=== PATIENT | female | born 2000 | race Caucasian/White ===

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

== ENCOUNTER 2022-04-06 10:47 | Emergency (ER) | payer OTHER, SELFPAY ==
[2022-04-06 10:57] VITALS: BP 141/84; PULSE 75; RESP 16; TEMP 36.6; O2SAT 96; BMI 37.1
[2022-04-06 11:06] LABS: UTC Strep Screen (Rapid) Positive (Negative)
--- NOTE | 2022-04-06 11:08 | EXP.UTC ---
Discharge Plan Disposition Patient Disposition: Home, Self-Care Condition: Good Prescriptions Prescriptions: New sqxckycwrrwcnny-ltfnhqqrn-SG [Bromfed DM] 2-30-10 mg/5 mL Syrup 5 ml PO Q6H PRN (Reason: Cough) Qty: 240 0RF cefdinir 250 mg/5 mL suspension for reconstitution 300 mg PO BID 10 Days Qty: 120 0RF No Action azithromycin 250 MG tablet 250 mg PO UD DOSE PK Qty: 6 0RF Rx Instructions: Take two (2) tablets today, then one (1) tablet days #2 thru #5 methylprednisolone 4 MG tablets,dose pack 4 mg PO DIRECTED 6 Days Qty: 21 0RF zqiheinayhhmwhx-ltkuvzbxn-OP 118 ML syrup 5 ml PO Q6HP PRN (Reason: Cough) Qty: 240 0RF pseudoephedrine HCl 120 MG tablet extended release 1 tab PO BID 10 Days Qty: 20 0RF cefdinir 300 MG capsule 300 mg PO BID Qty: 20 0RF fluticasone propionate 9.9 ML spray,suspension 1 spray NS BID 10 Days Qty: 1 0RF Referrals Follow up/Referrals: Seth Pereira MD [Primary Care Provider] - See instructions Activity Restrictions/Add. Instructions Additional Instructions/Restrictions: Drink plenty of fluids. Take tylenol or ibuprofen for pain or fever. Take the medications as directed. Follow up with your regular doctor. GO TO THE ER FOR ANY WORSENING SYMPTOMS Throw your tooth brush away and get a new one. Clinical Impressions Clinical Impression: Strep throat Instructions Patient Instructions: Strep Throat, DI for Strep Throat Discharge ED Provider: Michael Naik [facility] [place] H[place] General Stated complaint: sore throat, soa Mode of Arrival: Ambulatory Source of Information: Patient Limitations: No Limitations Time Seen by Provider: 04/06/22 11:08 Description of Symptoms (Recalled from Triage Doc. by RN): pt comes in with c/o swollen tonsils, symptoms began last night. HEENT Symptoms (Recalled from RN notes): Yes Resp Symptoms (Recalled from RN notes): No Skin Symptoms (Recalled from RN notes): No MS Symptoms (Recalled from RN notes): No Functional Status (Recalled from RN notes): n/a History of Present Illness Provider Complaint: She states that for the past 2 days she has had a weird feeling in her throat. She denies any fever, chills or body aches. Related Data Previous Rx's Medication Instructions Recorded azithromycin 250 mg tablet 250 mg PO UD DOSE PK #6 tabs 10/01/21 htooymkxtajyvgg-xjcwyhpdtjqhosk-HH 5 ml PO Q6HP PRN Cough #240 mL 10/01/21 2 mg-30 mg-10 mg/5 mL oral syrup methylprednisolone 4 mg tablets in 4 mg PO DIRECTED 6 days #21 10/01/21 a dose pack packets cefdinir 300 mg capsule 300 mg PO BID #20 caps 12/01/21 fluticasone propionate 50 1 spray intranasal BID 10 days #1 12/01/21 mcg/actuation nasal mL spray,suspension pseudoephedrine HCl 120 mg 1 tab PO BID 10 days #20 tabs 12/01/21 tablet,extended release vxzbpevsddrmzzt-jcsglturahyceid-SF 5 ml PO Q6H PRN Cough #240 mL 04/06/22 2 mg-30 mg-10 mg/5 mL oral syrup (Bromfed DM) cefdinir 250 mg/5 mL oral 300 mg (6 mL) PO BID 10 days #120 04/06/22 suspension mL Allergies Allergy/AdvReac Type Severity Reaction Status Date / Time Penicillins [PENICILLINS] Allergy Unknown Verified 04/06/22 11:00 Worker's Comp Is this a Worker's Comp case?: No PFSH PFSH Social History Smoking Status: Never smoker alcohol intake: never substance use type: denies use current occupational status: student Travel in the last 8 weeks: None household members: family housing: house ROS Obtained: Yes All systems reviewed & no additional complaints except as documented Constitutional Constitutional: Reports chills and Reports fever(s) Eyes Eyes: Denies eye discharge ENT Ears, Nose, Mouth, and Throat: Reports as per HPI Cardiovascular Cardiovascular: Denies chest pain Respiratory Respiratory: Denies chest congestion and Reports cough Gastrointestinal Gastrointestingal: Reports nausea; Denies abdo
[2022-04-06 11:42] VITALS: BP 141/84; PULSE 75; RESP 16; TEMP 36.6
== END 2022-04-06 11:45 | disposition home or self-care (01) ==
PROVIDERS: Emergency Provider Nurse Practitioner Family; PCP Emergency Medicine
DX: J02.0 Streptococcal pharyngitis (principal); B95.0 Streptococcus, group A, as the cause of diseases classified elsewhere; R05.9 Cough, unspecified; R06.02 Shortness of breath; Z79.51 Long term (current) use of inhaled steroids; Z79.52 Long term (current) use of systemic steroids; Z88.0 Allergy status to penicillin
CPT/HCPCS: 87880; 99213; G0463

== ENCOUNTER 2022-10-13 17:38 | Emergency (ER) | payer SELFPAY ==
[2022-10-13 17:50] VITALS: BP 146/89; PULSE 125; RESP 18; TEMP 36.7; O2SAT 99; BMI 36.9; BMI 37.1
--- NOTE | 2022-10-13 17:59 | EXP.UTC ---
Discharge Plan Disposition Patient Disposition: Home, Self-Care Condition: Good Referrals Follow up/Referrals: Seth Pereira MD [Primary Care Provider] - See instructions Activity Restrictions/Add. Instructions Additional Instructions/Restrictions: Your test results should be back in 5-7 days follow up with your OBGYN or Your Family Doctor for the results If you have any sores or blisters that occur Follow up immediately Return if needed Clinical Impressions Clinical Impression: Exposure to herpes Instructions Patient Instructions: Herpes Simplex Virus Testing, DI for Genital Herpes, DI for Cold Sores Discharge ED Provider: Cortney Sethi [facility] [place] General Stated complaint: Possible herpes Mode of Arrival: Ambulatory Source of Information: Patient Limitations: No Limitations Time Seen by Provider: 10/13/22 17:59 Description of Symptoms (Recalled from Triage Doc. by RN): c/o possible herpes. PT states that the danielle she has been seeing for the last 2 weeks has herpes per his baby momma. States she is concerned due to her having oral sex and kissed, denies any other sexual activity History of Present Illness Provider Complaint: Patient states that she has been seeing a danielle for a couple of weeks and his ex just told her that he has herpes States they did not have any penetration but did perform oral sex on each other States that she doesnt have any blisters on her but wanted to get a blood test to see Related Data Allergies Allergy/AdvReac Type Severity Reaction Status Date / Time Penicillins [PENICILLINS] Allergy Unknown Verified 04/06/22 11:00 [facility] Disclaimer: The information contained in this section may have been updated after the patient was seen, as this information can be updated by other users. Social History Smoking Status: Never smoker alcohol intake: never substance use type: denies use current occupational status: student Travel in the last 8 weeks: None household members: family housing: house ROS Obtained: Yes All systems reviewed & no additional complaints except as documented and Yes Systems reviewed as appropriate & no additional complaints except as documented Constitutional Constitutional: Reports system reviewed and no additional complaints, except as documented and Reports as per HPI ENT Ears, Nose, Mouth, and Throat: Reports system reviewed and no additional complaints, except as documented and Reports as per HPI Cardiovascular Cardiovascular: Reports system reviewed and no additional complaints, except as documented and Reports as per HPI Respiratory Respiratory: Reports system reviewed and no additional complaints, except as documented Gastrointestinal Gastrointestingal: Reports system reviewed and no additional complaints, except as documented and as per HPI Genitourinary Female Genitourinary: Reports system reviewed and no additional complaints, except as documented, Reports as per HPI, Denies genital lesions and Denies vaginal discharge Allergic/Immunologic Comments: had oral sex with someone that she was told has herpes she did not see any open lesions but now wanting to get tested Physical Exam General General appearance: alert and in no apparent distress ENT ENT exam: Present normal exam, normal oropharynx and mucous membranes moist Respiratory Respiratory exam: Present normal lung sounds bilaterally; Absent respiratory distress or wheezes Cardiovascular Cardiovascular exam: Present regular rate, normal rhythm and tachycardia Abdominal Exam Abdominal exam: Present soft and normal bowel sounds; Absent distention or tenderness Neurological Exam Neurological exam: Present alert, oriented X3 and normal gait Medical Decision Making Maximilian Inquiry Pt receiving controlled substance: No Maximilian was queried for this patient: No Vital Signs: 10/13/22 17:50 Pulse Rate [Left Radial] 125 H Respiratory Rate 18 0
[2022-10-13 18:26] VITALS: BP 146/89; PULSE 125; RESP 18; TEMP 36.7; O2SAT 99
[2022-10-15 11:10] LABS: HSV 1 IgG, Type Spec <0.91 index (0.00-0.90); HSV 2 IgG, Type Spec <0.91 index (0.00-0.90)
== END 2022-10-13 18:27 | disposition home or self-care (01) ==
PROVIDERS: Emergency Provider Nurse Practitioner; PCP Emergency Medicine
DX: Z11.3 Encounter for screening for infections with a predominantly sexual mode of transmission (principal); Z20.2 Contact with and (suspected) exposure to infections with a predominantly sexual mode of transmission
CPT/HCPCS: 86695; 86790; 99212; 99213; G0463

== ENCOUNTER 2023-09-17 08:30 | Emergency (ER) | payer OTHER, SELFPAY ==
[2023-09-17 08:40] VITALS: BP 107/71; PULSE 104; RESP 18; TEMP 37.1; O2SAT 96; BMI 39.7
--- NOTE | 2023-09-17 08:50 | EXP.UTC ---
Discharge Plan Disposition Patient Disposition: Home, Self-Care Condition: Good Prescriptions Prescriptions: New azithromycin [Zithromax Z-Armond] 250 mg tablet See Rx Instructions .ROUTE .COMPLEX 5 Days Qty: 6 0RF Rx Instructions: For 250 mg dose pack: take 500 mg today (day 1), then 250 mg for 4 days (days 2-5) Referrals Follow up/Referrals: Luke Montiel MD [Primary Care Provider] - See instructions Activity Restrictions/Add. Instructions Additional Instructions/Restrictions: *Monitor Temp, Over the counter Motrin or Tylenol as directed/as needed Tylenol every 4 hours and Motrin every 6 hours (as long as your family doctor has told you that you can take it) for fever or pain. and straight to ER if unable to lower temp less than 101.0 after medication given *Warm salt water gargles may help to soothe the throat *Throat Lozenges? *Warm fluids like tea with honey may help to soothe the throat? *Sleep elevated *Humidifier/Vaporizer *If you did not take Penicillin shot or was unable to, start taking antibiotic immediately and make sure that you take it for the FULL length of time although you should start to feel better in 24-48 hours *change toothbrush and toothpaste 24-48 hours after starting to take antibiotics so you do not reinfect yourself Monitor Temp. Tylenol and/or Ibuprofen as needed. ER if fever is no less than 101 despite alternating Tylenol and Ibuprofen * Encourage fluids, water, Gatorade, powerade, pedialyte if /toddler/or child *Cold fluids, popsicles and ice cream may feel good on his throat Follow up IMMEDIATELY for new or worsening symptoms or no Noticeable improvement over the next 48-72 hours. 911 for difficulty breathing or swallowing Clinical Impressions Clinical Impression: Strep throat Instructions Patient Instructions: Strep Throat, DI for Strep Throat Discharge ED Provider: Cortney Sethi [facility] [place] General Stated complaint: Sore throat, some congestion Mode of Arrival: Ambulatory Source of Information: Patient Limitations: No Limitations Time Seen by Provider: 09/17/23 08:50 Description of Symptoms (Recalled from Triage Doc. by RN): PATIENT C/O SORE THROAT AND BILATERAL EAR PAIN SINCE FRIDAY HEENT Symptoms (Recalled from RN notes): Yes Resp Symptoms (Recalled from RN notes): No Skin Symptoms (Recalled from RN notes): No MS Symptoms (Recalled from RN notes): No Functional Status (Recalled from RN notes): WNL History of Present Illness Provider Complaint: Patient states that her boyfriends daughter recently had strep throat States since Friday she has been having sore throat and bilateral ear pain that has continued to get worse so today she came in to get it checked Related Data Previous Rx's Medication Instructions Recorded azithromycin 250 mg tablet See Rx Instructions PO .COMPLEX 5 09/17/23 (Zithromax Z-Armond) days #6 tabs Allergies Allergy/AdvReac Type Severity Reaction Status Date / Time Penicillins [PENICILLINS] Allergy Unknown Verified 04/06/22 11:00 Worker's Comp Is this a Worker's Comp case?: No [facility] Disclaimer: The information contained in this section may have been updated after the patient was seen, as this information can be updated by other users. Social History Smoking Status: Never smoker alcohol intake: never substance use type: denies use current occupational status: student Travel in the last 8 weeks: None household members: family housing: house ROS Obtained: Yes All systems reviewed & no additional complaints except as documented and Yes Systems reviewed as appropriate & no additional complaints except as documented Constitutional Constitutional: Reports system reviewed and no additional complaints, except as documented, Reports as per HPI and Reports headache(s) Eyes Eyes: Reports system reviewed and no additional complaints, except as documented and Reports as per HPI ENT Ears, Nose, Mouth, and Throat: Reports system reviewed and no additional complaints, except as documented, Reports as per HPI, Reports otalgia, Reports headache(s) and Reports sore throat Cardiovascular Cardiovascular: Reports system reviewed and no additional complaints, except as documented and Reports as per HPI Respiratory Respiratory: Reports as per HPI Gastrointestinal Gastrointestingal: Reports system reviewed and no additional complaints, except as documented and as per HPI Genitourinary Female Genitourinary: Reports system reviewed and no additional complaints, except as documented and Reports as per HPI Musculoskeletal Musculoskeletal: Reports system reviewed and no additional complaints, except as documented and Reports as per HPI Neurologic Neurologic: Reports headache(s) Physical Exam General General appearance: alert and in no apparent distress ENT ENT exam: Present mucous membranes moist Expanded ENT Exam Throat exam: Present tonsillar erythema and tonsillar exudate Respiratory Respiratory exam: Present normal lung sounds bilaterally; Absent respiratory distress or wheezes Cardiovascular Cardiovascular exam: Present regular rate, normal rhythm and normal heart sounds Abdominal Exam Abdominal exam: Present soft and normal bowel sounds; Absent distention or tenderness Neurological Exam Neurological exam: Present alert, oriented X3 and normal gait Medical Decision Making Maximilian Inquiry Pt receiving controlled substance: No Maximilian was queried for this patient: No Vital Signs: 09/17/23 08:40 Temperature 98.7 F Temperature Source Oral Pulse Rate [Left Brachial] 104 H Respiratory Rate 18 Blood Pressure [Left Arm] 107/71 L Blood Pressure Mean [Left Arm] 83 Blood Pressure Source [Left Arm] Automatic Cuff Blood Pressure Position [Left Arm] Sitting 02 Sat by Pulse Oximetry 96 Oxygen Delivery Method Room Air Lab Data Lab results reviewed: Yes I reviewed the patient's lab results.
[2023-09-17 08:56] VITALS: BP 107/71; PULSE 104; RESP 18; TEMP 37.1; O2SAT 96
[2023-09-17 08:56] LABS: UTC Strep Screen (Rapid) Positive (Negative)
== END 2023-09-17 09:00 | disposition home or self-care (01) ==
PROVIDERS: Emergency Provider Nurse Practitioner; PCP Internal Medicine Adolescent Medicine
DX: J02.0 Streptococcal pharyngitis (principal); H92.03 Otalgia, bilateral
CPT/HCPCS: 87880; 99212; 99214; G0463

== ENCOUNTER 2023-10-01 16:38 | Emergency (ER) | payer OTHER, SELFPAY ==
[2023-10-01 16:40] VITALS: BP 161/105; PULSE 107; RESP 16; TEMP 36.8; O2SAT 98; BMI 38.7
--- NOTE | 2023-10-01 16:44 | ED_ITS ---
<Statement entered by Kriss Leon DO - 10/01/23 22:41> I was consulted by the LELA, and we discussed the complexity of the problems being addressed. I approved the treatment and management plan for this patient's care in the emergency department, thus performing a substantive portion of the medical decision making. Kriss Leon DO Discharge Plan Disposition Patient Disposition: Home, Self-Care Condition: Good Prescriptions Prescriptions: New albuterol sulfate 90 mcg/actuation HFA aerosol inhaler 2 inh inhalation Q4H PRN (Reason: shortness of breath or wheezing) Qty: 8.5 0RF prednisone 50 mg tablet 50 mg PO DAILY 5 Days Qty: 5 0RF No Action azithromycin [Zithromax Z-Armond] 250 mg tablet See Rx Instructions .ROUTE .COMPLEX 5 Days Qty: 6 0RF Rx Instructions: For 250 mg dose pack: take 500 mg today (day 1), then 250 mg for 4 days (days 2-5) Referrals Follow up/Referrals: Agustina Booker MD [Physician] - See instructions Luke Montiel MD [Primary Care Provider] - See instructions Activity Restrictions/Add. Instructions Additional Instructions/Restrictions: Utilize rescue inhaler 2 puffs every 4 hours as needed for shortness of breath or wheezing. Please call in the morning for a appointment with pulmonology. Follow-up with your PCP in 1 week for reevaluation return to ER as needed Clinical Impressions Clinical Impression: Lower respiratory tract infection Stand Alone Forms Stand Alone Forms: Work/School Release Discharge ED Provider: Kriss Leon General Adult HPI <SAUNDRA Sykes - Last Filed: 10/01/23 18:02> General Chief complaint: Upper Respiratory Infection Stated complaint: SOA,exposed to flu Time Seen by Provider: 10/01/23 16:44 History of Present Illness HPI narrative: Patient presents for evaluation of shortness of air and exposure to flu. Patient states that she was exposed to flu on Friday and then Friday began having constitutional symptoms of subjective fever body aches headache and nonproductive cough. Symptoms have persisted through today and patient reports feeling chest tightness when she tries to take a deep breath. Patient denies cardiac chest pain chills hemoptysis hematochezia melena nausea vomiting diarrhea. Related Data Previous Rx's Medication Instructions Recorded azithromycin 250 mg tablet See Rx Instructions PO .COMPLEX 5 09/17/23 (Zithromax Z-Armond) days #6 tabs albuterol sulfate 90 mcg/actuation 2 inh inhalation Q4H PRN shortness 10/01/23 aerosol inhaler of breath or wheezing #8.5 grams prednisone 50 mg tablet 50 mg PO DAILY 5 days #5 tabs 10/01/23 Allergies Allergy/AdvReac Type Severity Reaction Status Date / Time Penicillins [PENICILLINS] Allergy Unknown Verified 04/06/22 11:00 PFS <SAUNDRA Sykes - Last Filed: 10/01/23 18:02> [facility] Disclaimer: The information contained in this section may have been updated after the patient was seen, as this information can be updated by other users. Social History Smoking Status: Current every day smoker alcohol intake: never substance use type: denies use current occupational status: student Travel in the last 8 weeks: None household members: family housing: house <SAUNDRA Sykes - Last Filed: 10/01/23 18:02> ROS Obtained: Yes Systems reviewed as appropriate & no additional complaints except as documented Physical Exam <SAUNDRA Sykes - Last Filed: 10/01/23 18:02> General General appearance: alert and in no apparent distress Head Head exam: atraumatic and normal inspection Eye Eye exam: Present normal appearance, PERRL and EOMI ENT ENT exam: Present normal exam, normal oropharynx and mucous membranes moist Neck Neck exam: Present normal inspection, full ROM and trachea midline; Absent lymphadenopathy Chest Chest inspection: Present normal inspection and symmetric chest wall rise; Absent tenderness Respiratory Respiratory exam: Present normal lung sounds bilaterally; Absent respiratory distress, wheezes (Faint end expiratory wheezes in all 4 mcneil) or accessory muscle use Cardiovascular Cardiovascular exam: Present normal rhythm, tachycardia, normal heart sounds, +S1 and +S2 Abdominal Exam Abdominal exam: Present soft (Obese) and normal bowel sounds; Absent tenderness Extremities Exam Extremities exam: Present normal inspection and full ROM; Absent tenderness Back Exam Back exam: Present normal inspection and full ROM; Absent tenderness Neurological Exam Neurological exam: Present alert and oriented X3 Psychiatric Psychiatric exam: Present normal affect and normal mood Skin Skin exam: Present warm, dry and normal color Medical Decision Making <SAUNDRA Sykes Last Filed: 10/01/23 18:02> Medical Records Medical records reviewed: Yes I reviewed the patient's medical records. Maximilian Inquiry Pt receiving controlled substance: No Vital Signs: 10/01/23 16:40 10/01/23 17:03 10/01/23 18:06 Temperature 98.3 F 98.3 F Temperature Source Oral Pulse Rate 105 H 105 H Pulse Rate [Left Radial] 107 H Respiratory Rate 16 20 20 Blood Pressure 136/76 136/76 Blood Pressure [Right Arm] 161/105 H Blood Pressure Mean [Right Arm] 123 Blood Pressure Source Automatic Cuff Blood Pressure Position Sitting Sitting 02 Sat by Pulse Oximetry 98 94 L Oxygen Delivery Method Room Air Room Air Room Air Lab Data Lab results reviewed: Yes I reviewed the patient's lab results. Lab Results 10/01/23 16:44: SARS-CoV-2 (PCR) Not detected, Influenza A Untype (PCR) Not detected, Influenza Type B (PCR) Not detected 10/01/23 16:54: WBC 5.5, RBC 4.84, Hgb 11.5 L, Hct 36.2 L, MCV 74.7 L, MCH 23.7 L, MCHC 31.6 L, RDW 15.6, Plt Count 310, MPV 10.0, Neut % (Auto) 64.6, Lymph % (Auto) 26.5, [place] % (Auto) 6.5, Eos % (Auto) 1.0, Baso % (Auto) 1.5, Neut # (Auto) 3.5, Lymph # (Auto) 1.5, [place] # (Auto) 0.4, Eos # (Auto) 0.1, Baso # (Auto) 0.1, D-Dimer 0.37, Sodium 138, Potassium 3.5, Chloride 104, Carbon Dioxide 25, Anion Gap 12.5, BUN 13, Creatinine 0.60, Estimated Creat Clear 257, Estimated GFR 127, Est GFR ( Amer) 154, Glucose 90, Calcium 8.9, Magnesium 2.1, Serum HCG, Qual Negative 10/01/23 16:54 10/01/23 16:54 Orders (Tests/Meds): ED MEDICATIONS Discontinued Medications Generic Name Dose Route Start Last Admin Trade Name Freq PRN Reason Stop Dose Admin Acetaminophen 1,000 mg 10/01/23 16:48 10/01/23 17:11 Acetaminophen 500mg Tab PO 10/01/23 16:49 1,000 mg ONCE ONE Administration Albuterol/Ipratropium 3 ml 10/01/23 16:51 10/01/23 17:12 Ipratropium/Albuterol 3 Ml Neb IH 10/01/23 16:52 3 ml ONCE ONE Administration Dexamethasone Sodium Phosphate 10 mg 10/01/23 16:48 10/01/23 17:11 Dexamethasone 4mg/Ml 1ml Vial IV 10/01/23 16:49 10 mg ONCE ONE Administration Ketorolac Tromethamine 15 mg 10/01/23 16:48 10/01/23 17:27 Ketorolac 30mg/Ml Vial IV 10/01/23 16:49 15 mg ONCE ONE Administration ORDERS Category Date Time Status Chest XR -- portable [XR chest portable] Stat Exams 10/01/23 16:48 Completed BMP [Basic Metabolic Panel] Stat Lab 10/01/23 16:54 Completed CBC w/Auto Diff [Complete Blood Count Auto Diff] Stat Lab 10/01/23 16:54 Completed D-Dimer Stat Lab 10/01/23 16:54 Completed HCG Qualitative, Serum Stat Lab 10/01/23 16:54 Completed Magnesium Stat Lab 10/01/23 16:54 Completed Rapid PCR Covid and Flu A/B Stat Lab 10/01/23 16:44 Completed Medical Decision Narrative: In summary patient is a 42-year-old female who presents to the emergency department for evaluation of positive flu chest tightness breath. Patient is tachycardic normotensive upon arrival, and afebrile. Physical exam is remarkable for faint end expiratory wheezes mcneil but no chest tenderness to palpation. Patient is slightly tachycardic rhythm is tachycardia on the bedside monitor.. Differential diagnosis includes asthma exacerbation versus viral or bacterial infection. Initial workup will be conducted with hematologic labs respiratory swabs twelve-lead EKG plain film chest x-ray. Initial interventions include Toradol Tylenol DuoNeb Decadron. Initial workup reviewed by me shows hematologic labs are nonactionable including negative respiratory swabs and normal white count with no shift. Monitor inform interpretation of her plain film x-ray shows no processes.. Upon repeat evaluation has had improvement in her subjective symptoms chest tightness has after DuoNeb. Given this appropriate discharge with a prescription for a metered-dose inhaler and 5 days of steroids referral to pulmonology close follow-up with her PCP. Patient verbalized understanding and agreement. <Kriss Leon, DO - Last Filed: 10/01/23 22:42> Vital Signs: 10/01/23 16:40 10/01/23 17:03 10/01/23 18:06 Temperature 98.3 F 98.3 F Temperature Source Oral Pulse Rate 105 H 105 H Pulse Rate [Left Radial] 107 H Respiratory Rate 16 20 20 Blood Pressure 136/76 136/76 Blood Pressure [Right Arm] 161/105 H Blood Pressure Mean [Right Arm] 123 Blood Pressure Source Automatic Cuff Blood Pressure Position Sitting Sitting 02 Sat by Pulse Oximetry 98 94 L Oxygen Delivery Method Room Air Room Air Room Air Lab Data Lab Results 10/01/23 16:44: SARS-CoV-2 (PCR) Not detected, Influenza A Untype (PCR) Not detected, Influenza Type B (PCR) Not detected 10/01/23 16:54: WBC 5.5, RBC 4.84, Hgb 11.5 L, Hct 36.2 L, MCV 74.7 L, MCH 23.7 L, MCHC 31.6 L, RDW 15.6, Plt Count 310, MPV 10.0, Neut % (Auto) 64.6, Lymph % (Auto) 26.5, [place] % (Auto) 6.5, Eos % (Auto) 1.0, Baso % (Auto) 1.5, Neut # (Auto) 3.5, Lymph # (Auto) 1.5, [place] # (Auto) 0.4, Eos # (Auto) 0.1, Baso # (Auto) 0.1, D-Dimer 0.37, Sodium 138, Potassium 3.5, Chloride 104, Carbon Dioxide 25, Anion Gap 12.5, BUN 13, Creatinine 0.60, Estimated Creat Clear 257, Estimated GFR 127, Est GFR ( Amer) 154, Glucose 90, Calcium 8.9, Magnesium 2.1, Serum HCG, Qual Negative Orders (Tests/Meds): ED MEDICATIONS Discontinued Medications Generic Name Dose Route Start Last Admin Trade Name Freq PRN Reason Stop Dose Admin Acetaminophen 1,000 mg 10/01/23 16:48 10/01/23 17:11 Acetaminophen 500mg Tab PO 10/01/23 16:49 1,000 mg ONCE ONE Administration Albuterol/Ipratropium 3 ml 10/01/23 16:51 10/01/23 17:12 Ipratropium/Albuterol 3 Ml Neb IH 10/01/23 16:52 3 ml ONCE ONE Administration Dexamethasone Sodium Phosphate 10 mg 10/01/23 16:48 10/01/23 17:11 Dexamethasone 4mg/Ml 1ml Vial IV 10/01/23 16:49 10 mg ONCE ONE Administration Ketorolac Tromethamine 15 mg 10/01/23 16:48 10/01/23 17:27 Ketorolac 30mg/Ml Vial IV 10/01/23 16:49 15 mg ONCE ONE Administration ORDERS Category Date Time Status Chest XR -- portable [XR chest portable] Stat Exams 10/01/23 16:48 Completed BMP [Basic Metabolic Panel] Stat Lab 10/01/23 16:54 Completed CBC w/Auto Diff [Complete Blood Count Auto Diff] Stat Lab 10/01/23 16:54 Completed D-Dimer Stat Lab 10/01/23 16:54 Completed HCG Qualitative, Serum Stat Lab 10/01/23 16:54 Completed Magnesium Stat Lab 10/01/23 16:54 Completed Rapid PCR Covid and Flu A/B Stat Lab 10/01/23 16:44 Completed ECG Data Tracing #1: I reviewed this ECG and interpreted as documented below: Sinus tachycardia with a ventricular rate of 106 bpm. Some motion artifact noted. No acute ST changes concerning for ischemia. ECG initial impression date: 10/01/23 ECG initial impression time: 16:53 Medical Decision Narrative: In summary patient is a 22-year-old female who presents to the emergency department for evaluation of positive flu chest tightness breath. Patient is tachycardic normotensive upon arrival, and afebrile. Physical exam is remarkable for faint end expiratory wheezes mcneil but no chest tenderness to palpation. Patient is slightly tachycardic rhythm is tachycardia on the bedside monitor.. Differential diagnosis includes asthma exacerbation versus viral or bacterial infection. Initial workup will be conducted with hematologic labs respiratory swabs twelve-lead EKG plain film chest x-ray. Initial interventions include Toradol Tylenol DuoNeb Decadron. Initial workup reviewed by me shows hematologic labs are nonactionable including negative respiratory swabs and normal white count with no shift. Monitor inform interpretation of her plain film x-ray shows no processes.. Upon repeat evaluation has had improvement in her subjective symptoms chest tightness has after DuoNeb. Given this appropriate discharge with a prescription for a metered-dose inhaler and 5 days of steroids referral to pulmonology close follow-up with her PCP. Patient verbalized understanding and agreement. Critical Care <SAUNDRA Sykes - Last Filed: 10/01/23 18:02> Critical Care Time Critical Care Time: No
--- NOTE | 2023-10-01 16:48 | XR_ITS ---
PROCEDURE INFORMATION: Exam: XR Chest Exam date and time: 10/01/2023 5:32 PM Age: 22 years old Clinical indication: Pain; Other: Chest tightness TECHNIQUE: Imaging protocol: Radiologic exam of the chest. Views: 1 view. COMPARISON: CR XR CHEST 2V 03/26/2021 11:23 PM FINDINGS: Lungs: Unremarkable. No consolidation. Pleural spaces: Unremarkable. No pleural effusion. No pneumothorax. Heart/Mediastinum: Unremarkable. No cardiomegaly. Bones/joints: Unremarkable. IMPRESSION: No acute findings.
--- NOTE | 2023-10-01 16:49 | ECG_ITS ---
APPROVED REPORT Exam: Resting ECG HR:106 bpm ECG Measurements Heart Rate 106 AXES NV 139 P 66 QRSd 97 QRS 70 QT 300 T 74 QTc 362 Conclusion SINUS TACHYCARDIA LOW QRS VOLTAGE IN PRECORDIAL LEADS [QRS DEFLECTION < 1.0 mV IN CHEST LEADS] POSSIBLE RIGHT VENTRICULAR CONDUCTION DELAY [RSR (QR) IN V1/V2] Some motion artifact noted. No acute STEMI Electronically signed by : YOBANI CLEMENTE, 10/01/2023 23:26:30
[2023-10-01 16:55] LABS: Coronavirus 19, PCR Not Detected (NotDetected); Influenza A, PCR Not Detected (NotDetected); Influenza B, PCR Not Detected (NotDetected)
[2023-10-01 17:03] VITALS: BP 136/76; PULSE 105; RESP 20; O2SAT 94
[2023-10-01 17:09] LABS: Anion Gap 12.5 mEq/L (5-15); Blood Urea Nitrogen 13 mg/dl (7-17); Calcium 8.9 mg/dl (8.4-10.2); Carbon Dioxide 25 mmol/L (22.0-30.0); Chloride 104 mmol/L (98-107); Creatinine Clearance Estimated 257 mL/min (50-200); Estimated Glomerular Filt Rate 127 ml/min (>60); GFR (African American) 154 ML/MIN (>60); Glucose 90 mg/dl (74-100); Magnesium 2.1 mg/dl (1.6-2.3); Potassium 3.5 mmoL/L (3.5-5.1); Sodium 138 mmol/L (136-145)
[2023-10-01] MEDS: DEXAMETHASONE 4MG/ML 1ML VIAL 10 MG IV (17:11)
[2023-10-01] MEDS: ACETAMINOPHEN 500MG TAB 1000 MG PO (17:11)
[2023-10-01] MEDS: IPRATROPIUM/ALBUTEROL 3 ML NEB IH (17:12)
[2023-10-01 17:19] LABS: Basophils # 0.1 K/mm3 (0-0.2); Basophils % 1.5 % (0.1-2.0); Eosinophils # 0.1 K/mm3 (0.0-0.4); Hematocrit 36.2 % (37.0-47.0); Hemoglobin 11.5 g/dL (12.2-16.2); Lymphocytes # 1.5 K/mm3 (0.7-4.5); Lymphocytes % 26.5 % (10-50); Mean Corpuscular HGB Conc 31.6 g/dL (31.8-35.4); Mean Corpuscular Hemoglobin 23.7 pg (27.0-31.2); Mean Corpuscular Volume 74.7 fl (81-99); Monocytes # 0.4 K/mm3 (0.1-1.0); Monocytes % 6.5 % (1.7-9.3); Neutrophils # 3.5 K/mm3 (1.8-7.8); Neutrophils % 64.6 % (37.0-80.0); Platelet Count 310 K/mm3 (142-424); Red Blood Count 4.84 M/mm3 (4.20-5.40); Red Cell Distribution Width 15.6 % (11.5-17.5); White Blood Count 5.5 K/mm3 (4.5-13.0)
[2023-10-01 17:22] LABS: HCG Qualitative, Serum Negative (Negative)
[2023-10-01] MEDS: KETOROLAC 30MG/ML VIAL 15 MG IV (17:27)
[2023-10-01 17:30] LABS: D-Dimer 0.37 ug/mL (0.0-0.5)
--- NOTE | 2023-10-01 17:54 | PC.NURSE ---
rounded on pt, does not need anything at this moment
[2023-10-01 18:06] VITALS: BP 136/76; PULSE 105; RESP 20; TEMP 36.8; O2SAT 94
== END 2023-10-01 18:08 | disposition home or self-care (01) ==
PROVIDERS: Physician Assistant; Emergency Provider Emergency Medicine; PCP Internal Medicine Adolescent Medicine
DX: R00.0 Tachycardia, unspecified (principal); R06.02 Shortness of breath; R50.9 Fever, unspecified; R51.9 Headache, unspecified; R05.9 Cough, unspecified; J06.9 Acute upper respiratory infection, unspecified; F17.210 Nicotine dependence, cigarettes, uncomplicated
CPT/HCPCS: 71045; 80048; 83735; 84703; 85025; 85378; 87636; 93005; 96374; 96375; 99284

== ENCOUNTER 2023-10-24 08:21 | Emergency (ER) | payer OTHER, SELFPAY ==
[2023-10-24 08:40] VITALS: BP 121/71; PULSE 95; RESP 19; TEMP 36.8; O2SAT 97; BMI 39.9
[2023-10-24 08:59] LABS: UTC Pregnancy Test, Urine Positive (Negative)
--- NOTE | 2023-10-24 09:05 | ED_ITS ---
Discharge Plan Disposition Patient Disposition: Home, Self-Care Condition: Good Prescriptions Prescriptions: No Action albuterol sulfate 90 mcg/actuation HFA aerosol inhaler 2 inh inhalation Q4H PRN (Reason: shortness of breath or wheezing) Qty: 8.5 0RF Referrals Follow up/Referrals: Luke Montiel MD [Primary Care Provider] - See instructions Activity Restrictions/Add. Instructions Additional Instructions/Restrictions: FOllow up with your OBGYN as scheduled You was given a paper to enroll in the [email or web address] [facility] Portal where your results can be obtained if you have trouble getting them you can pick the results up at the Medical Records Avoid smokiing and alcohol Clinical Impressions Clinical Impression: Positive blood test Instructions Patient Instructions: Nausea of (Alternative Therapy), DI for -- Discomforts and Remedies Discharge ED Provider: Cortney Sethi [facility] [place] General Stated complaint: blood test Mode of Arrival: Ambulatory Source of Information: Patient Limitations: No Limitations Time Seen by Provider: 10/24/23 09:05 Description of Symptoms (Recalled from Triage Doc. by RN): Pt had two positive urine preg test at home on 10/11/2023 and 10/13/2023. Pt wants a confirmation test. HEENT Symptoms (Recalled from RN notes): No Resp Symptoms (Recalled from RN notes): No Skin Symptoms (Recalled from RN notes): No MS Symptoms (Recalled from RN notes): No Functional Status (Recalled from RN notes): n/a History of Present Illness Provider Complaint: Patient states that she has taken two home tests over the last week that has shown positive so today she came in requesting blood test to make sure they are right Related Data Previous Rx's Medication Instructions Recorded albuterol sulfate 90 mcg/actuation 2 inh inhalation Q4H PRN shortness 10/01/23 aerosol inhaler of breath or wheezing #8.5 grams Allergies Allergy/AdvReac Type Severity Reaction Status Date / Time Penicillins [PENICILLINS] Allergy Unknown Verified 10/24/23 08:56 Worker's Comp Is this a Worker's Comp case?: No [facility] Disclaimer: The information contained in this section may have been updated after the patient was seen, as this information can be updated by other users. Social History Smoking Status: Current every day smoker alcohol intake: never substance use type: denies use current occupational status: student Travel in the last 8 weeks: None household members: family housing: house ROS Obtained: Yes All systems reviewed & no additional complaints except as documented and Yes Systems reviewed as appropriate & no additional complaints except as documented Constitutional Constitutional: Reports system reviewed and no additional complaints, except as documented and Reports as per HPI ENT Ears, Nose, Mouth, and Throat: Reports system reviewed and no additional complaints, except as documented and Reports as per HPI Cardiovascular Cardiovascular: Reports system reviewed and no additional complaints, except as documented and Reports as per HPI Respiratory Respiratory: Reports system reviewed and no additional complaints, except as documented and Reports as per HPI Gastrointestinal Gastrointestingal: Reports system reviewed and no additional complaints, except as documented and as per HPI; Denies abdominal pain Genitourinary Female Genitourinary: Reports system reviewed and no additional complaints, except as documented, Reports as per HPI and Reports other (positive home test) Physical Exam General General appearance: alert and in no apparent distress ENT ENT exam: Present normal exam, normal oropharynx, mucous membranes moist and TM's normal bilaterally Respiratory Respiratory exam: Present normal lung sounds bilaterally; Absent respiratory distress or wheezes Cardiovascular Cardiovascular exam: Present regular rate, normal rhythm and normal heart sounds Abdominal Exam Abdominal exam: Present soft and normal bowel sounds; Absent distention or tenderness Neurological Exam Neurological exam: Present alert, oriented X3 and normal gait Medical Decision Making Maximilian Inquiry Pt receiving controlled substance: No Maximilian was queried for this patient: No Vital Signs: 10/24/23 08:40 Temperature 98.3 F Temperature Source Oral Pulse Rate [Right Radial] 95 H Respiratory Rate 19 Blood Pressure [Right Arm] 121/71 Blood Pressure Mean [Right Arm] 87 Blood Pressure Source [Right Arm] Automatic Cuff Blood Pressure Position [Right Arm] Sitting 02 Sat by Pulse Oximetry 97 Oxygen Delivery Method Room Air Lab Data Lab results reviewed: Yes I reviewed the patient's lab results. Lab Results 10/24/23 08:56: [facility] Positive Orders (Tests/Meds): ORDERS Category Date Time Status HCG Qualitative, Serum Stat Lab 10/24/23 09:01 Ordered HCG,Quantitative Stat Lab 10/24/23 09:01 Ordered Medical Decision Narrative: Patient given results on her Qualitative test but quant will be back later and she will obtain it from the Portal
--- NOTE | 2023-10-24 09:10 | PC.NURSE ---
Sent blood to lab via tube system
[2023-10-24 09:37] LABS: HCG Qualitative, Serum Positive (Negative)
[2023-10-24 09:59] VITALS: BP 121/71; PULSE 95; RESP 18; TEMP 36.8; O2SAT 97
[2023-10-24 10:28] LABS: HCG,Quantitative 24401 mIU/ml (0-5.42)
== END 2023-10-24 09:59 | disposition home or self-care (01) ==
PROVIDERS: Emergency Provider Nurse Practitioner; PCP Internal Medicine Adolescent Medicine
DX: Z32.01 Encounter for pregnancy test, result positive (principal)
CPT/HCPCS: 81025; 84702; 84703; 99212; G0463

== ENCOUNTER 2024-03-07 20:58 | Outpatient (CLI) | payer OTHER, SELFPAY ==
--- OUTSIDE RECORDS SUMMARY | 2024-03-07 21:01 | XMS_ITS ---
Author Organization [facility] Address [address] [place] [address] Care Team Providers Care Travel Coordinator Name Role Phone Luke Montiel Primary Care Provider Evelia Shoemaker Unavailable [phone] Allergies Allergen (clinical drug ingredient) Drug/Non Drug Allergy documented on EMR Reaction Allergy Type Onset Date Status penicillin rash Drug Allergy Active Results Component Value Reference Range Notes HEMOGLOBIN A1c (496) Reviewed date:01/29/2023 01:38:24 PM Interpretation: Performing Lab:[facility] [id number] [id number] Carlo Lopez Notes/Report: NON-FASTING; NON-FASTING; NON-FASTING HEMOGLOBIN A1c 5.3 <5.7 % of total Hgb For the purpose of screening for the presence of diabetes: <5.7% Consistent with the absence of diabetes 5.7-6.4% Consistent with increased risk for diabetes (prediabetes) > or =6.5% Consistent with diabetes This assay result is consistent with a decreased risk of diabetes. Currently, no consensus exists regarding use of hemoglobin A1c for diagnosis of diabetes in children. According to [place] Diabetes Association (ADA) guidelines, hemoglobin A1c <7.0% represents optimal control in non- diabetic patients. Different metrics may apply to specific patient populations. Standards of Medical Care in Diabetes(ADA). HCG, TOTAL, QL (8435) Reviewed date:01/29/2023 01:38:24 PM Interpretation: Performing Lab:[facility] [id number], [id number] Carlo Lopez Notes/Report: NON-FASTING; NON-FASTING; NON-FASTING HCG, TOTAL, QL NEGATIVE See Note: Reference Range: Reference Range Non-: Negative : Positive TSH (899) Reviewed date:01/29/2023 01:38:24 PM Interpretation: Performing Lab:[facility] [id number], [facility] [id number] Carlo Lopez Notes/Report: NON-FASTING; NON-FASTING; NON-FASTING TSH 1.98 Reference Range > or = 20 Years 0.40-4.50 Ranges First trimester 0.26-2.66 Second trimester 0.55-2.73 Third trimester 0.43-2.91 REASON FOR VISIT Establish pt care, Difficulty waking up in the mornings, always tired- started about a year ago buthas gotten worse Social History Tobacco Use: Social History Observation Description Date Details (start date - stop date) Current Smoker NA - NA Smoking: Question Answer Notes Are you a: current smoker Problems Problem Type SNOMED Code ICD Code Onset Dates Problem Status W/U Status Risk Notes Problem 21859094 Amenorrhea (N91.2) Active confirmed Problem 111777197 BMI 40.0-44.9, adult (Z68.41) Active confirmed Vital Signs Temperature 94.8 degrees Fahrenheit 01/28/20 23 Blood pressure systolic 112 mm Hg 01/28/20 23 Blood pressure diastolic 64 mm Hg 023 Heart Rate 96 /min 01/27/2023 Height 66 in 01/27/2023 Weight 248 lbs 01/27/2023 BMI 40.02 kg/m2 01/27/2023 Encounters Encounter Location Date Provider Diagnosis [facility] [address] [place] [address] 01/27/2023 Luke Montiel Other malaise R53.81 ; Other fatigue R53.83 ; Amenorrhea N91.2 ; BMI 40.0-44.9, adult Z68.41 ; Routine medical exam Z00.00 and Family history of diabetes mellitus (DM) Z83.3 Assessments Encounter Date Diagnosis (ICD Code) Assessment Notes Treatment Notes Treatment Clinical Notes 01/27/2023 Other malaise (ICD-10 - R53.81) Multifactorial etiologies possible for fatigue. Given patient's strong family history of thyroid disease and diabetes we will do the noted test. I will try to minimize lab work to absolutely necessary given her lack of insurance status. Does not appear to have any stigmata of anemia with rashida cheeks and normal capillary refill. Strongly consider possible depression issues. Check labs and then we will get back to her. 01/27/2023 Other fatigue (ICD-10 - R53.83) 01/27/2023 Amenorrhea (ICD-10 - N91.2) 01/27/2023 BMI 40.0-44.9, adult (ICD-10 - Z68.41) 01/27/2023 Routine medical exam (ICD-10 - Z00.00) 01/27/2023 Family history of diabetes mellitus (DM) (ICD-10 - Z83.3) Plan Of Treatment Treatment Notes Assessment Notes Other malaise Multifactorial etiologies possible for fatigue. Given patient's strong family history of thyroid disease and diabetes we will do the noted test. I will try to minimize lab work to absolutely necessary given her lack of insurance status. Does not appear to have any stigmata of anemia with rashida cheeks and normal capillary refill. Strongly consider possible depression issues. Check labs and then we will get back to her. Next Appt Details Follow Up: prn, Reason: Progress Notes * Anju WARNER ADOB:2000 (22 yo F)Acc No.[id number]:01/27/2023 Patient:?Anju Warner A Provider:?Luke Montiel MD :2000???Age:22 Y???Sex:Female D ate:01/27/2023 Address:[address] [place], [place] [id number] Subjective: * Chief Complaints: * ???1. Establish pt care. 2. Difficulty waking up in the mornings, always tired- started about a year ago but has gotten worse. * HPI: ???gen:? Anju Warner presents to the clinic for consultation regarding a 1 year history of fatigue that has worsened in the past 3-4 months. ?1. Fatigue ?Mya states she first noticed this fatigue 1 year prior and states it has gotten worse over the past 3-4 months. She states that no matter how long she sleeps, she will always have a hard time waking up and often sleeps through her alarms. Once she wakes up, she will stay consistently tired throughout the entire day. She denies recent weight loss, cold intolerance, nausea, or vomiting. She has a strong family history of thyroid issues and diabetes. She states to always having irregular menses with her LMP in October 2022. * Medical History:?Asthma & al lergies, History of Right forearm fracture and Left leg fracture, s/p bilateral PE tubes, S/p adenoidectomy. * Surgical History:?Bilateral ear tubes 2004, Adenoidectomy . * Hospitalization/Major Diagno stic Procedure:?Pneumonia . * Family History:?Father: nelson wiley.?Mother: alive.?Paternal Grand Father: .?Paternal Grand Mother: alive, diabetes.?Maternal Grand Father: , diabetes, Heart disease (by-pass). Maternal Grand Mother: , diabetes, heart disease.?Paternal uncle: alive.?Paternal aunt: alive.?Maternal uncle: alive.?Siblings: alive.?1 brother(s) , 3 sister(s) - healthy. .? * Social History:?Smoking?Are you a:?current smoker.?Recreational drug use: no. Exercise: no. Home smoke detector use: yes. Caffeine: yes, frequency: daily. Living Will: No. Alcohol: socially. Sexually active: yes. Travel outside [place]: no. 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 * Medications:?Discontinued Fl onase 0.05 mg/inh spray 2 spray(s) intranasally once a day , Discontinued Claritin-D 12 Hour 5 mg-120 mg tablet, extended release 1 tab(s) orally every 12 hours , Discontinued cefdinir 300 mg capsule 1 cap(s) orally every 12 hours , Medication List reviewed and reconciled with the patient * Allergies:?Penicillin: Rash. Objective: * Vitals:?Nurse: naomi, Temp: 94. 8, RR: 20, HR: 96, BP: 112/64, Ht: 66, Wt: 248, BMI:40.02. * Examination: ???General Examination: ?General?Pleasant and Cooperative, NAD on RA,.?Heart:?Regular Rate and Rhythm, no murmur, rubs or gallops.?Lungs:?LCTAB, No wheezes, crackles or rhonchi, Good air movement,.?Neurologic Exam:?no focal signs,.?neck?supple, no thyromegaly,.?Psych?Normal Mood/Affect.? Assessment: * Assessment: 1.?Other malaise - R53.81 (P rimary)?2.?Other fatigue - R53.83?3.?Amenorrhea - N91.2?4.?BMI 40.0-44.9, adult - Z68.41?5.?Routine medical exam - Z00.00?6.?Family history of diabetes mellitus (DM) - Z83.3? Plan: * Treatment: 2.?Other fatigue?LAB: HEMOGLOBIN A1c (496) ?LAB: HCG, TOTAL, QL (8435) ?LAB: TSH (899) 3.?Amenorrhea?LAB: HEMOGLOBIN A1c (496) ?LAB: HCG, TOTAL, QL (8435) ?LAB: TSH (899) 4.?BMI 40.0-44.9, adult?LAB: HEMOGLOBIN A1c (496) ?LAB: HCG, TOTAL, QL (8435) ?LAB: TSH (899) 5.?Routine medical exam?LAB: HEMOGLOBIN A1c (496) ?LAB: HCG, TOTAL, QL (8435) ?LAB: TSH (899) 6.?Family history of diabete s mellitus (DM)?LAB: HEMOGLOBIN A1c (496) ?LAB: HCG, TOTAL, QL (8435) ?LAB: TSH (899) * Follow Up:?prn * * Sign off status: Completed true * Provider:?Luke Montiel MD Date :?01/27/2023 Generated for Elainei anjana/Nita/eTransmitting on:?03/07/2024 09:01 PM EDT History and Physical Notes * Examination Category Sub-Category Detail Notes General Examination Heart: Regular Rate and Rhythm, no murmur, rubs or gallops Lungs: LCTAB, No wheezes, c rackles or rhonchi, Good air movement, Neurologic Exam: no focal signs, neck supple, no thyromega ly, General Pleasant and Coopera tive, NAD on RA, Psych Normal Mood/Affect
--- OUTSIDE RECORDS SUMMARY | 2024-03-07 21:01 | XMS_ITS | Patient Health Record ---
Author Organization [facility] Address [address] [place] [address] Care Team Providers Care Echo Technician Name Role Phone Luke Montiel Primary Care Provider Evelia Shoemaker Unavailable Allergies Allergen (clinical drug ingredient) Drug/Non Drug Allergy documented on EMR Reaction Allergy Type Onset Date Status penicillin rash Drug Allergy Active Immunizations Vaccine Route Administration Date Status Comme nts Fluvirin--Influenza vaccine 3+ year IM Intramuscular 05/07/2013 Administered Social History Tobacco Use: Social History Observation Description Date Details (start date - stop date) Current Smoker NA - NA Smoking: Question Answer Notes Are you a: current smoker Problems Problem Type SNOMED Code ICD Code Onset Dates Problem Status W/U Status Risk Notes Problem 635940170 Seasonal allergic rhinitis (J30.2) Active confirmed Problem 713896352 Asthma (J45.909) Active confirmed Problem 470297993 BMI 40.0-44.9, adult (Z68.41) Active confirmed Problem 72675914 Amenorrhea (N91.2) Active confirmed Plan Of Treatment Pending Test Test Name Order Date X ray : Tib/Fib, Right 10/24/2009 N-BMP 09/23/2006 Ultrasound : Liver 03/01/2014 Physical Therapy 11/28/2009 H-CBC with AUTO DIFF 10/15/2010 H-THROAT CULTURE 10/25/2010 H-STREP SCREEN (RAPID) 09/24/2010 H-JANIA PROFILE 03/01/2014 H-ANTI MITOCHONDRIAL AB 03/01/2014 H-HEPATITIS PROFILE (CHRONIC) 03/01/2014 H-INFLUENZA A ANTIGEN 05/04/2009 H-URINALYSIS 02/27/2009 C-URINE CULTURE 12/01/2012 H-CERULOPLASMIN 03/01/2014 Future Test Test Name Order Date H-URINE 24 HOUR FOR PROTEIN 08/30/2008 Medical (General) History Medical History History ICD Code Asthma & allergies History of Right forearm fracture and Le ft leg fracture s/p bilateral PE tubes s/p adenoidectomy Surgical History Surgery Date(Month/Year) Bilateral ear tubes 2005 Adenoidectomy Hospitalization History Reason Date(Month/Year) Pneumonia
[2024-03-07 21:05] VITALS: BMI 39.6
[2024-03-07 21:13] LABS: Microscopic, Urine URINE MICROSCOPIC (MICROSCOPIC)
[2024-03-07 21:16] VITALS: BP 121/65; PULSE 103; RESP 18; TEMP 36.8; O2SAT 96; BMI 39.6
[2024-03-07 21:16] LABS: Appearance,Urine Cloudy (Clear); Bilirubin,Urine Negative (Negative); Blood, Urine Negative (Negative); Color,Urine YELLOW (Yellow); Glucose,Urine (UA) Negative (Negative); Ketones,Urine Negative (Negative); Leukocyte Esterase,Urine 2+ (Negative); Nitrate,Urine Negative (Negative); PH,Urine 7.5 (5.0-8.5); Protein,Urine Negative (Negative); Urobilinogen,Urine 0.2 EU/dl (0.2)
[2024-03-07 21:27] LABS: Amphetamine/Metha Screen,Urine Negative ng/ml (<1000); Benzodiazepines Screen,Urine Negative ng/ml (<200)
[2024-03-07 21:28] LABS: Barbiturates Screen,Urine Negative ng/ml (<200); Cannabinoid Screen,Urine Negative ng/ml (<50)
[2024-03-07 21:29] LABS: Cocaine Screen,Urine Negative ng/ml (<300)
[2024-03-07 21:30] LABS: Methadone Screen,Urine Negative ng/ml (<300)
[2024-03-07 21:31] LABS: Opiate Screen,Urine Negative ng/ml (<300); Phencyclidine Screen,Urine Negative ng/ml (<25)
[2024-03-07 21:35] LABS: Bacteria,Urine Trace /lpf; Squamous Epithelial Cell,Urine 20-50 #/hpf (0-5)
== END 2024-03-07 22:00 | disposition home or self-care (01) ==
LOC: OBOUT 21:00 → OB 21:00
PROVIDERS: PCP Internal Medicine Adolescent Medicine; Visit Provider Obstetrics & Gynecology
DX: O36.8120 Decreased fetal movements, second trimester, not applicable or unspecified (principal); Z3A.26 26 weeks gestation of pregnancy
CPT/HCPCS: 80307; 81001; 87086; G0463

== ENCOUNTER 2024-07-26 16:43 | Emergency (ER) | payer OTHER, SELFPAY ==
[2024-07-26 17:10] VITALS: BP 142/70; PULSE 99; RESP 22; TEMP 36.9; O2SAT 96; BMI 37.4
--- NOTE | 2024-07-26 17:28 | EXP.UTC ---
Discharge Plan Disposition Patient Disposition: Home, Self-Care Condition: Good Prescriptions Prescriptions: New azithromycin [Zithromax Z-Armond] 250 mg tablet See Rx Instructions .ROUTE .COMPLEX 5 Days Qty: 6 0RF Rx Instructions: For 250 mg dose pack: take 500 mg today (day 1), then 250 mg for 4 days (days 2-5) fluticasone propionate [Flonase Allergy Relief] 50 mcg/actuation spray,suspension 2 spray intranasal DAILY Qty: 16 0RF Rx Instructions: administer into each nostril daily Referrals Follow up/Referrals: Luke Montiel MD [Primary Care Provider] - See instructions Activity Restrictions/Add. Instructions Additional Instructions/Restrictions: *Monitor Temp, Over the counter Motrin or Tylenol as directed/as needed Tylenol every 4 hours and Motrin every 6 hours (as long as your family doctor has told you that you can take it) for fever or pain. and straight to ER if unable to lower temp less than 101.0 after medication given *Warm salt water gargles may help to soothe the throat *Throat Lozenges? *Warm fluids like tea with honey may help to soothe the throat? *Sleep elevated *Humidifier/Vaporizer *Flonase 2 sprays in each nostril daily but be aware that it may take 2-3 days before you notice improvement Take medication as prescribed Your throat swab was sent for culture. Those results are typically sent to your primary care. Be sure to follow up in 2-3 days with your family doctor/primary care physician if no improvement so they can review those result and treat if necessary. If you don?t have a primary care doctor, I recommend you get one but in the mean time, you will have to return to a walk in clinic Follow up IMMEDIATELY for new or worsening symptoms or no Noticeable improvement over the next 48-72 hours. 911 for difficulty breathing or swallowing Clinical Impressions Clinical Impression: Sinusitis Instructions Patient Instructions: DI for Sinusitis, Sinusitis Print Language Print Language: Iranian Discharge ED Provider: Cortney Sethi [facility] HPI General Stated complaint: rodrick, runny nose ear ache Mode of Arrival: Ambulatory Source of Information: Patient Limitations: No Limitations Time Seen by Provider: 07/26/24 17:28 Description of Symptoms (Recalled from Triage Doc. by RN): PATIENT C/O RUNNY NOSE, CONGESTION, SORE THROAT, AND BILATERAL EAR PAIN SINCE FRIDAY NIGHT HEENT Symptoms (Recalled from RN notes): Yes Resp Symptoms (Recalled from RN notes): No Skin Symptoms (Recalled from RN notes): No MS Symptoms (Recalled from RN notes): No Functional Status (Recalled from RN notes): WNL History of Present Illness Provider Complaint: Patient states that she started feeling bad several days ago States that she has been having sinus pain and pressure, sore throat, bilateral ear pain and pressure and over all not feeling well States she is breast feeding and today she was having pressure behind her eyes so she came in to get checked Related Data Previous Rx's ?Medication ?Instructions ?Recorded azithromycin 250 mg tablet See Rx Instructions PO .COMPLEX 5 07/26/24 (Zithromax Z-Armond) days #6 tabs fluticasone propionate 50 2 spray intranasal DAILY #16 grams 07/26/24 mcg/actuation nasal spray,suspension (Flonase Allergy Relief) Allergies Allergy/AdvReac Type Severity Reaction Status Date / Time Penicillins (PENICILLINS) Allergy Unknown Hives Verified 07/26/24 17:16 Worker's Comp Is this a Worker's Comp case?: No [facility] Disclaimer: The information contained in this section may have been updated after the patient was seen, as this information can be updated by other users. Medical History (Updated 07/26/24 @ 17:41 by Cortney Sethi APRN) UTI (urinary tract infection) Asthma Surgical History (Updated 07/26/24 @ 17:17 by Kim Dunn RN) History of adenoidectomy History of tympanostomy tube placement Social History Smoking Status: Current every day smoker alcohol intake: never substance use type: denies use current occupational status: unemployed Travel in the last 8 weeks: None household members: family housing: house Have you lived/traveled outside US in past 30 days?: No Contact w/someone who lives/traveled outside US past 30 days?: No Exposure to someone with infectious disease in past 14 days?: No Do you have a fever (greater than 100.4 F or 38 C)?: No Have you tested positive for COVID-19: No Exposed to someone with COVID-19 in past 14 days?: No Do you have a sore throat?: No Do you have a cough?: No Do you have any weakness?: No Do you have any diarrhea?: No Are you experiencing any unusual bleeding?: No Do you have any muscle aches/pain?: No Do you have any abdominal pain?: No Are you experiencing loss of taste or smell?: No ROS Obtained: Yes All systems reviewed & no additional complaints except as documented and Yes Systems reviewed as appropriate & no additional complaints except as documented Constitutional Constitutional: Reports system reviewed and no additional complaints, except as documented and Reports as per HPI ENT Ears, Nose, Mouth, and Throat: Reports system reviewed and no additional complaints, except as documented, Reports otalgia, Reports sinus pain, Reports sinus pressure and Reports sore throat Cardiovascular Cardiovascular: Reports system reviewed and no additional complaints, except as documented and Reports as per HPI Respiratory Respiratory: Reports system reviewed and no additional complaints, except as documented and Reports as per HPI Physical Exam General General appearance: alert and in no apparent distress ENT ENT exam: Present mucous membranes moist Expanded ENT Exam TM/Canal exam: Left TM: erythema (mild redness noted) and Bilateral TM: bulging Nose exam: Present sinus tenderness Throat exam: Present other (Pharngeal erythema noted with PND) Respiratory Respiratory exam: Present normal lung sounds bilaterally; Absent respiratory distress or wheezes Cardiovascular Cardiovascular exam: Present regular rate, normal rhythm and normal heart sounds Abdominal Exam Abdominal exam: Present soft and normal bowel sounds; Absent distention or tenderness Neurological Exam Neurological exam: Present alert, oriented X3 and normal gait Medical Decision Making Medical Records Screening: Per USPSTF and CDC recommendations, given the prevalence of disease in our region, it is our hospital?s policy to screen for HIV and viral Hepatitis for all patients aged 18 and over and those with ongoing risk factors. Maximilian Inquiry Pt receiving controlled substance: No Maximilian was queried for this patient: No Vital Signs: 07/26/24 17:10 Temperature 98.5 F Temperature Source Oral Pulse Rate [Left Brachial] 99 H Respiratory Rate 22 Blood Pressure [Left Arm] 142/70 H Blood Pressure Mean [Left Arm] 94 Blood Pressure Source [Left Arm] Automatic Cuff Blood Pressure Position [Left Arm] Sitting 02 Sat by Pulse Oximetry 96 Oxygen Delivery Method Room Air Medical Decision Narrative: medication discussed with pharmacy due to breast feeding
[2024-07-26 17:45] VITALS: BP 142/70; PULSE 99; RESP 22; TEMP 36.9; O2SAT 96
[2024-07-26 17:45] LABS: UTC Influenza A Antigen Negative (Negative); UTC Influenza B Antigen Negative (Negative); UTC Strep Screen (Rapid) Negative (Negative)
== END 2024-07-26 17:48 | disposition home or self-care (01) ==
PROVIDERS: Emergency Provider Nurse Practitioner; PCP Internal Medicine Adolescent Medicine
DX: J32.9 Chronic sinusitis, unspecified (principal)
CPT/HCPCS: 87804; 87880; 99213; G0381

== ENCOUNTER 2024-08-23 18:20 | Emergency (ER) | payer OTHER, SELFPAY ==
[2024-08-23 19:34] VITALS: BP 000/000; PULSE 0; RESP 0; TEMP -17.7; TEMP 0; O2SAT 0
== END 2024-08-23 19:33 | disposition left against medical advice (07) ==
LOC: ER 19:01
PROVIDERS: Emergency Provider Emergency Medicine; PCP Internal Medicine Adolescent Medicine
DX: Z53.21 Procedure and treatment not carried out due to patient leaving prior to being seen by health care provider (principal)